=== PATIENT | female | born 1955 | race Caucasian/White ===

== ENCOUNTER 2018-11-25 09:01 | Emergency (ER) | payer BC ==
[2018-11-25 09:13] VITALS: BP 141/81
--- NOTE | 2018-11-25 10:27 | UC ---
Back Pain HPI - HPI Summary HPI Summary: 63 y/o female presents to the urgent care accompany by mother c/o of new onset of severe RT hip pain since last night. Pt reports Hx of Renal cell Carcinoma in 09/2007 s/p radical nephroctomy in 2011. Pt states cancer has metastasis to T12 and recently to L1 s/p radiation. She has been managed by [facility] and here in [place] by Dr Yesenia Tolbert. Pt recently has an Brain MRI to r/o metastasis which was negative. Pt states she took tylenol PO last night 500mg q3hrs. she has taken 4 doses, last dose taken was at 0100AM. She has nausea now, but has not vomited. Pt has been eating well and drinking fluids. However this morning she did a BM with hard stools. Pain now is 5/10 sharp in the Rt hip radiating to the Rt lower leg w/ mild nu - History of Current Complaint Chief Complaint: UCBackPain Stated Complaint: BACK PAIN Time Seen by Provider: 11/25/18 10:08 Hx Obtained From: Patient Pain Intensity: 9 - Allergies/Home Medications Allergies/Adverse Reactions: Allergies Allergy/AdvReac Type Severity Reaction Status Date / Time cefuroxime [From Ceftin] Allergy Hives Verified 11/25/18 09:13 hydrocodone Allergy Headache Verified 11/25/18 09:13 PMH/Surg Hx/FS Hx/Imm Hx Previously Healthy: Yes - Surgical History Surgical History: Yes Surgery Procedure, Year, and Place: PARTIAL NEPHRECTOMY RIGHT 2007. RADICAL RIGHT KIDNEY 2011. GALLBLADDER 2003. CYST REMOVED RIGHT OVARY BENIGN 1989. T& A - Social History Alcohol Use: None Substance Use Type: None Smoking Status (MU): Never Smoked Tobacco Physical Exam - Summary Physical Exam Summary: Vital Signs Reviewed: Yes Appearance: Well-Appearing, Well-Nourished, female sitting in the examining table w/o any apparent distress. Eyes: Positive: Conjunctiva Clear - PERRLA, EOMI. ENT: Positive: Normal ENT inspection, Hearing grossly normal, Pharynx normal, TMs normal, Uvula midline Neck: Positive: Supple, Nontender, No Lymphadenopathy Respiratory: Positive: Chest non-tender, Lungs clear, Normal breath sounds, No respiratory distress Cardiovascular: Positive: RRR, No Murmur, Pulses Normal, Brisk Capillary Refill Abdomen Description: Positive: Nontender, No Organomegaly, Soft. Negative: CVA Tenderness (R), CVA Tenderness (L) Bowel Sounds: Positive: Present Musculoskeletal: Positive: Strength Intact, Other: - BACK: Patient walked into the urgent care room with symmetric ambulation, No signs of limping, antalgic, able to bear weight. No signs of trauma, No masses palpated. Point tenderness at the level of L5-S1, No CVAT, no flank ecchymosis . No sacroiliac notch tenderness, No saddle anesthesia.ROM: limited due to pain, Straight Leg Raise: negative. Patellar reflexes: brisk, symmetric Muscle strength lower extremities. Dorsiflexion/ plantar flexion of ankles. Heel/ toe walk. Lower extremities: Femoral, popliteal, posterior tibial, and dorsalis pedis pulses WNL. Pt refuse rectal exam Musculoskeletal: Positive: Strength Intact, Other: - RT Hip: Pt is able to ambulate without difficulty or assistance, limp, or antalgic gait. No surface trauma, ecchymosis. No erythema, warmth. No deformity, crepitus, or obvious asymmetry of the RT hip. No Tenderness to palpation over the symphysis pubis, ischial bone, trochanter, SI notch, buttocks, quadriceps, femoral triangle, inguinal ligament. Point tenderness on Rt lateral side of the hip below the iliac crest. No inguinal lymphadenopathy. FROM limited due to pain. Distal motor and neurovascular status are intact. Neurological: Positive: Alert, Muscle Tone Normal Psychological Exam: Normal Skin Exam: Normal Triage Information Reviewed: Yes Vital Signs: Initial Vital Signs Temp 98 F 11/25/18 09:10 Pulse 90 11/25/18 09:10 Resp 17 11/25/18 09:10 BP 141/81 11/25/18 09:10 Pulse Ox 100 11/25/18 09:10 Back Pain Course/Dx - Differential Dx/Diagnosis Differential Diagnosis/HQI/PQRI: Compressive Cord Syndrome, Herniated Disc, Neoplasm, Strain, Sprain, Other - hip pain and metastasis Provider Diagnosis: Acute right hip pain Discharge - Sign-Out/Discharge Documenting (check all that apply): Patient Departure - D/c home All imaging exams completed and their final reports reviewed: Yes - Discharge Plan Condition: Stable Prescriptions: methylPREDNISolone [Medrol Dosepak 4 MG*] 4 mg PO .SEE FATUMA INSTRUCTION #1 fatuma traMADol TAB* [Ultram*] 50 mg PO Q6HR PRN #12 tab MDD 400mg/day PRN Reason: Pain Patient Education Materials: Hip Pain (ED), Bone Metastasis (ED) Referrals: Anna Skelton MD [Primary Care Provider] - - Billing Disposition and Condition Condition: STABLE
[2018-11-25] MEDS ORDERED: Ondansetron ODT TAB* 4 MG PO ONE ×2 (10:28→11:52)
[2018-11-25] MEDS ORDERED: traMADol TAB* 50 MG PO ONE (11:51)
== END 2018-11-25 12:29 | disposition home or self-care (01) ==
LOC: UCEAST 09:01
DX: M25.551 Pain in right hip (principal); Z88.5 Allergy status to narcotic agent; Z88.1 Allergy status to other antibiotic agents
CPT/HCPCS: 99212; A9270-GY; G0463

== ENCOUNTER 2019-11-14 01:07 | Emergency (ER) | payer BC, OTHER ==
--- OUTSIDE RECORDS SUMMARY | 2019-11-14 01:54 | XMS REPORT | Summary of Care ---
:1955 Author Organization [facility] Address [address] [facility] [place] [address] Care Team Providers Name Role Phone Anna Skelton MD Primary Care Provider Reason for Referral Refer to Department Only (Routine) Status Reason Specialty Diagnoses / Referred By Referred To Procedures Contact Contact Pending Review Physical Therapy Diagnoses Pain in joint of left shoulder Felicity Walden NP [address] [place] [address] Scheduling Instructions [employer] Reason for Visit Reason Comments Check Up had back surgery in december of 2018 and is now experiecing L shoulder pain, feels like its freezing, issues with range of motion Encounter Details Date Type Department Care Team Description 11/03/2019 Office Visit [place] [facility] Felicity Walden, Pain in joint of left Practice [facility] shoulder (Primary Dx) [address] [place] [address] [place] [address] [phone] Allergies Active Allergy Reactions Severity Noted Date Comments Cefuroxime Hives 08/14/2011 Hydrocodone RUBY ON RAILS WEB DEVELOPER Reaction 10/20/2007 CAUSES MIGRAINES documented as of this encounter (statuses as of 11/03/2019) Medications Medication Sig Dispensed Refills Start Date End Date Status MULTI-VITAMIN PO Take by mouth 0 Active DAILY. Loperamide-Simethicone Take by mouth. 0 Active (IMODIUM MULTI-SYMPTOM RELIEF PO) Probiotic Product Take by mouth. 0 Active (PROBIOTIC DAILY PO) Axitinib (INLYTA) 5 MG Take 5 mg by 0 Active Oral Tab mouth TWICE DAILY. levothyroxine Take 50 mcg by 0 Active (SYNTHROID) 50 MCG Oral mouth BEFORE Tab BREAKFAST. OXYcodone discharge Take 5 mg by 0 Active (OXY-IR,OXY-FAST) 5 MG mouth TWO TIMES Oral Tab DAILY NEEDED (pain, takes rarely). MEDICAL MARIJUANA Take 0.3 mg by 0 Active mouth TWO TIMES DAILY NEEDED. ondansetron (ZOFRAN) 4 Take 4 mg by 0 Active MG Oral TABLET mouth EVERY SIX DISPERSIBLE HOURS NEEDED (nausea). documented as of this encounter (statuses as of 11/03/2019) Active Problems Problem Noted Date Metastatic renal cell carcinoma, right 03/12/2018 Abnormal ECG 06/14/2013 Overview: 04/08/13 ECG: "Sinus bradycardia. Low voltage QRS, consider pulmonary disease, pericardial effusion, or normal variant. Poor R wave progression. Left anterior fascicular block. Abnormal ECG." No symptoms, will request that [facility] f/u. Visual changes 06/14/2013 Overview: Seen and assessed at [facility], MRI brain unremarkable. Attributed to retinal tear , not a pazopanib toxicity. Uterine anomaly 04/08/2013 Overview: [place] to be c/w fibroids here but 02/2013 scan at [facility] felt could be "c/w metastases" Seems unlikely but will have her review with the [facility] team Pain 02/15/2013 Overview: Occasional right pelvic pain responds to APAP Fatigue 02/15/2013 Overview: Expect TSH to be checked at [facility] Weight loss 07/25/2012 Overview: Weight has stabilized Other specified disorders of liver 10/31/2008 Metastatic renal cell carcinoma 10/12/2007 Overview: CTs at [facility] 09/02/13 Stable nodules Oncologic Diagnosis: Right renal ca "CLEAR CELL TYPE, VICKIE NUCLEAR GRADE 2 TO 3." Date of Original Diagnosis: 10/2007 Date recurrence: 2011 Stage at diagnosis: c/pT1a cN0 pNx cM0/cMx Current stage: cTx cNx pM1 with multiple abdominal nodules Treatment and clinical chronology: 2007 laparoscopic partial nephrectomy but required multiple excisions 3 retroperitoneal nodules noted on CT 05/14/12 retrospectively present on previous CTs (see 08/06/12 discussion). No definite distant disease apparent. 06/17/12 completion resection of kidney and perinephric and abdominal wall lesions c/w metastatic renal cell ca - rendered GARIMA. After discussion of "adjuvant" options chose observation CTs and bone scans 11/2012 recurrent abdominal nodules up to 1.2 cm new retroperitoneal nodules and ?right adrenal nodule and right paraspinal recurrence. No bone or lung lesions 12/31/[address] Cao [facility] and started on pazopanib. Ongoing loss of hair pigmentation otherwise good tolerance. 03/09/12 CT at [facility] - reduction in size of nodules Treatment plan: Per [facility] Pazopanib 800 mg po daily, start 01/01/13 Intent: palliative Monitoring plan: Per [facility] Other providers: Dr. Kari Reilly, [facility] FAX [phone] (send results from labs) Current ECOG Performance Status: 0 Current Status: NC on 02/2013 CT at [facility] Code Status: Full Living Will/Health Care Proxy: documented as of this encounter (statuses as of 11/03/2019) Resolved Problems Problem Noted Date Resolved Date Elevated transaminase level 02/15/2013 04/08/2013 Overview: Advised to avoid alcohol Shoulder pain, right 08/09/2012 12/22/2012 Overview: Post op and seems musculoskeletal. She wonders if relates to positioning on operating room table. May need additional imaging and evaluation if persists. Situational mixed anxiety and depressive disorder 07/25/2012 03/14/2016 Overview: Understandable situational anxiety and mild depression. Much improved Dysfunction of eustachian tube 08/14/2011 03/14/2016 Pleurisy without mention of effusion or current tuberculosis 10/31/200812/15 Irritable bowel syndrome 06/21/2008 07/20/2014 Calculus of gallbladder without mention of cholecystitis or 09/30/20052015 obstruction Other specified pre-operative examination 09/30/2005 12/15/2009 documented as of this encounter (statuses as of 11/03/2019) Immunizations Name Administration Dates Next Due Influenza (IM) Preservative Free 07/12/2019, 07/13/2018, 07/25/2017, 07/10/2016, 07/07/2015, 07/29/2014, 07/08/2013, 07/15/2012, 08/28/2011 Influenza Vaccine Whole 08/11/2009 PNEUMOCOCCAL POLYSACCHARIDE VACCINE 09/29/2017 Pneumococcal Conjugate(13 Valent) 08/04/2019 TDAP Vaccine 03/12/2018 documented as of this encounter Social History Tobacco Use Types Packs/Day Years Used Date Former Smoker Quit: 07/23/1975 Smokeless Tobacco: Never Used Comments: smoked since she was a young adult. Alcohol Use Drinks/Week oz/Week Comments Yes 1 Glasses of wine 1.0 former wine, rare now Sex Assigned at Date Recorded Not on file Job Start Date Occupation Industry Not on file Not on file Not on file Travel History Travel Start Travel End No recent travel history available. documented as of this encounter Last Filed Vital Signs Vital Sign Reading Time Taken Comments Blood Pressure 128/62 11/03/2019 3:58 PM EST Pulse 83 11/03/2019 3:58 PM EST Temperature - - Respiratory Rate - - Oxygen Saturation 99% 11/03/2019 3:58 PM EST Inhaled Oxygen Concentration - - Weight 58.5 kg (129 lb) 11/03/2019 3:58 PM EST Height 160 cm (5' 3") 11/03/2019 3:58 PM EST Body Mass Index 22.85 11/03/2019 3:58 PM EST documented in this encounter Patient Instructions Patient InstructionsNoFelicity torre NP - 11/03/2019 3:40 PM ESTXray today - I'll let you know the results as soon as I get them. Schedule physical therapy - the new referral is in. documented in this encounter Progress Notes Felicity Walden NP - 11/03/2019 3:40 PM EST PATIENT: Keira Yeager : 1955 DATE OF SERVICE: 11/03/2019 CHIEF COMPLAINT: Chief Complaint Patient presents with Check Up had back surgery in december of 2018 and is now experiecing L shoulder pain, feels like its freezing,issues with range of motion Subjective HISTORY OF PRESENT ILLNESS: Keira Yeager is a 64-y.o. female. HPI Left shoulder, not able to lift her arm up. She was doing physical therapy for her back and mentioned to her therapist, who added shoulder exercises. She has history of Kidney cancer since 2007 - still ongoing. Right nephrectomy (partient in 2007, then rest in 2011). She had surgeries at [facility], and then third tumor was treated at [facility]. One year ago in October scan showed a tumor in L1. Had radiation on that in November 2017, then a hairline fracture. End of January kyphoplasty on the L1 and titanium alfonzo from T12 -L2 on left. t12- l3 on right. Shoulder stiffness started Fall 2018. Doing aquatherapy. She got a puppy and he pulled on the leash, hyperextending her arm - but thinks the tightness started before this incident. Getting some pain in the bicep/tricep areas at time, tenderness. Would like an xray to make sure no cancer in the shoulder. Plans to return to physical therapy, ended in September (has been doing the HEP since). Posterior rotation causes muscle pain and tightness. Raising arm above head= she can do it but it is painful and stiff/tight feeling. Past Medical History: Diagnosis Date Irritable bowel syndrome 06/21/2008 Nulliparity Other specified disorders of liver 10/31/2008 hepatic cyst and small lesions too small to diagnose on CT 12/2015 Postmenopausal Renal cell carcinoma (HCC) diagnoised in 2006, s/p radical nephrectomy. Pazopanib PO daily, current dose is 800 mg daily Situational mixed anxiety and depressive disorder Situational mixed anxiety and depressive disorder Smoker 06/21/2008 Family History Problem Relation Age of Onset Uterine Cancer Mother Glaucoma Mother Cancer Mother uterine cancer Pulmonary Mother PE of lung Cancer Father postate cancer Heart Father CAD, stent, no [place] No Known Problems Sister Colon Cancer Unknown family history Diabetes Unknown family history Heart Unknown family history Breast Cancer Paternal Aunt Diabetes Maternal Grandmother Current Outpatient Medications Medication Sig Axitinib (INLYTA) 5 MG Oral Tab Take 5 mg by mouth TWICE DAILY. levothyroxine (SYNTHROID) 50 MCG Oral Tab Take 50 mcg by mouth BEFORE BREAKFAST. Loperamide-Simethicone (IMODIUM MULTI-SYMPTOM RELIEF PO) Take by mouth. MEDICAL MARIJUANA Take 0.3 mg by mouth TWO TIMES DAILY NEEDED. MULTI-VITAMIN PO Take by mouth DAILY. ondansetron (ZOFRAN) 4 MG Oral TABLET DISPERSIBLE Take 4 mg by mouth EVERY SIX HOURS NEEDED (nausea). OXYcodone discharge (OXY-IR,OXY-FAST) 5 MG Oral Tab Take 5 mg by mouth TWO TIMES DAILY NEEDED (pain, takes rarely). Probiotic Product (PROBIOTIC DAILY PO) Take by mouth. No current facility-administered medications for this visit. Allergies Allergen Reactions Ceftin [Cefuroxime] Hives Hydrocodone RUBY ON RAILS WEB DEVELOPER Reaction CAUSES MIGRAINES Social History Socioeconomic History Marital status: Spouse name: Not on file Number of children: Not on file Years of education: Not on file Highest education level: Not on file Occupational History Not on file Social Needs Financial resource strain: Not on file Food insecurity Worry: Not on file Inability: Not on file Transportation needs Medical: Not on file Non-medical: Not on file Tobacco Use Smoking status: Former Smoker Last attempt to quit: 07/23/1975 Years since quittin.3 Smokeless tobacco: Never Used Tobacco comment: smoked since she was a young adult. Substance and Sexual Activity Alcohol use: Yes Alcohol/week: 1.0 standard drinks Types: 1 Glasses of wine per week Comment: former wine, rare now Drug use: No Sexual activity: Not Currently Partners: Male Lifestyle Physical activity Days per week: Not on file Minutes per session: Not on file Stress: Not on file Relationships Social connections Talks on phone: Not on file Gets together: Not on file Attends judaism service: Not on file Active member of club or organization: Not on file Attends meetings of clubs or organizations: Not on file Relationship status: Not on file Intimate partner violence Fear of current or ex partner: Not on file Emotionally abused: Not on file Physically abused: Not on file Forced sexual activity: Not on file Other Topics Concern Back Care Not Asked Bike Helmet Not Asked Blood Transfusions No Caffeine Concern Yes Comment: green tea, 3-4/day Exercise Yes Comment: yoga, walks Hobby Hazards Not Asked International Travel Not Asked Service Not Asked Occupational Exposure Not Asked Seat Belt Not Asked Self-Exams Not Asked Sleep Concern Not Asked Special Diet No Comment: lactose intolerant Stress Concern Not Asked Weight Concern Not Asked Social History Narrative 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 Cardiovascular: Negative for chest pain and palpitations. Musculoskeletal: Positive for back pain (chronic), joint pain (left shoulder) and myalgias (left bicep/tricep). Negative for falls and neck pain. Neurological: Negative for dizziness, tingling, sensory change and headaches. Objective PHYSICAL EXAM: VITALS: BP 128/62 (BP Location: Left arm, Patient Position: Sitting) | Pulse 83 | Ht 5' 3" (1.6 m) | Wt 129 lb (58.5 kg) | SpO2 99% | No | BMI 22.85 kg/m Body mass index is 22.85 kg/m. Physical Exam Vitals signs and nursing note reviewed. Constitutional: General: She is not in acute distress. Appearance: Normal appearance. She is well-developed. Cardiovascular: Rate and Rhythm: Normal rate and regular rhythm. Heart sounds: Normal heart sounds. No murmur. No friction rub. No gallop. Pulmonary: Effort: Pulmonary effort is normal. No respiratory distress. Breath sounds: Normal breath sounds. Musculoskeletal: Right shoulder: Normal. Left shoulder: She exhibits decreased range of motion, tenderness and pain. She exhibits no bony tenderness, no swelling, no effusion, no crepitus, no deformity, no spasm, normal pulse and normal strength. Left elbow: Normal. Cervical back: Normal. Left upper arm: She exhibits tenderness. She exhibits no bony tenderness, no swelling, no edema, no deformity and no laceration. Arms: Lymphadenopathy: Head: Right side of head: No submental, submandibular or tonsillar adenopathy. Left side of head: No submental, submandibular or tonsillar adenopathy. Cervical: No cervical adenopathy. Upper Body: Right upper body: No supraclavicular adenopathy. Left upper body: No supraclavicular adenopathy. Neurological: Mental Status: She is alert. Psychiatric: Mood and Affect: Mood and affect normal. Speech: Speech normal. Behavior: Behavior normal. Behavior is cooperative. ASSESSMENT / IMPRESSION: ICD-9-CM ICD-10-CM 1. Pain in joint of left shoulder 719.41 M25.512 XR SHOULDER MIN 2 VIEWS LEFT ( STANDARD) REFER TO PHYSICAL THERAPY / REHAB CANCELED: REFER TO PHYSICAL THERAPY / REHAB Plan 1. Pain in joint of left shoulder -Given history of metastatic cancer, will do xray. - follow up with oncologist is next week. -New referral to physical therapy as requested. - XR SHOULDER MIN 2 VIEWS LEFT (STANDARD); Future - REFER TO PHYSICAL THERAPY / REHAB; Standing Author: Felicity Walden NP 11/03/2019 19:20 documented in this encounter Plan of Treatment Date Type Specialty Care Team Description 11/04/2019 Ancillary Procedure Radiology Name Type Priority Associated Diagnoses Order Schedule XR SHOULDER MIN 2 Imaging Routine Pain in joint of left Expected: 2019, VIEWS LEFT (STANDARD) shoulder Expires: 11/02/2020 Name Type Priority Associated Diagnoses Order Schedule REFER TO PHYSICAL Referral Routine Pain in joint of left 99 Occurrences starting THERAPY / REHAB shoulder 11/03/2019 until 11/03/2020 Health Maintenance Due Date Last Done Comments ZOSTER IMMUNIZATION SERIES 2007 (1 of 2) PAP SMEAR 07/09/2019 07/09/2017, 07/05/2016, 07/05/2016, Additional history exists DEPRESSION SCREENING 06/11/2020 06/11/2019 MAMMOGRAM (SCREENING) 08/26/2020 08/26/2019, 07/10/2018, 07/09/2017, Additional history exists Colonoscopy 05/15/2022 05/15/2017, 03/17/2007 PNEUMOCOCCAL 0-64 YRS (3 of 09/29/2022 08/04/2019, 09/29/2017 3 - PPSV23) LIPID DISORDER SCREENING 08/26/2024 08/26/2019, 03/12/2018, 06/30/2013, Additional history exists DTaP/Tdap/Td Vaccines (2 - 03/12/2028 03/12/2018 Tdap) HEPATITIS C SCREENING Completed 06/21/2014 INFLUENZA VACCINE Completed 07/12/2019, 07/13/2018, 07/25/2017, Additional history exists HEPATITIS A IMMUNIZATION Aged Out No longer eligible SERIES based on patient's age to complete this topic HPV IMMUNIZATION SERIES Aged Out No longer eligible based on patient's age to complete this topic MENINGOCOCCAL VACCINE IMM Aged Out No longer eligible based on patient's age to complete this topic documented as of this encounter Goals Goal Patient Goal Associated Recent Patient-Stated? Author Type Problems Progress Depression Depression No Iram screen (PHQ-9) Felicity, total score < 5 [facility] Note: This is an individualized treatment (depression) goal for Keira Yeager: Displayed above is your goal for a depression screening (PHQ-9) score that would indicate good control of your depression. Keep a regular sleep schedule Lifestyle No Felicity Walden NP Note: This is an individualized lifestyle goal for Keira Wise Ron: Please maintain a regular sleep schedule. This may help with some symptoms of depression. Take all prescribed medications as Self-management No Felicity Walden NP directed Note: This is an individualized self-management goal for Keira Lebronotson: Please take all prescribed medications as directed. 1. Do not skip doses. If you cannot afford your medications, talk with your doctor. 2. Use a pill reminder system such as a pill box if needed. Your pharmacist can help you with this. 3. Contact your Pharmacy 5 days before your medication runs out. If you cannot take your medications for any reasons, talk with your doctor. 4. Please bring all of your medication bottles and inhalers (or a list of all your medications/inhalers) with you to every visit. Potential barriers to meeting all of your care plan goals will continue to be addressed on an ongoing basis. documented as of this encounter Results Not on filedocumented in this encounter Visit Diagnoses Diagnosis Pain in joint of left shoulder Pain in joint, shoulder region documented in this encounter Insurance Payer Benefit Plan / Subscriber ID Effective Dates Phone Address Type Group [facility] PLAN xxxxxxxxx Effective for all [place] dates documented as of this encounter
[2019-11-14] MEDS ORDERED: NS 0.9% 1000 ML** 1,000 ML IV ONE ×2 (02:16→02:50)
[2019-11-14 02:38] LABS: ABS Basophils 0.1 10^3/ul (0-0.2); ABS Eosinophils 0.1 10^3/ul (0-0.6); ABS Lymphocytes 1.1 10^3/ul (1.0-4.8); ABS Monocytes 0.6 10^3/ul (0-0.8); ABS Neutrophils 6.8 10^3/ul (1.5-7.7); Eosinophil % 0.7 %; Hematocrit 43 % (35-47); Hemoglobin 14.5 g/dL (12.0-16.0); Lymphocyte % 12.6 %; Mean Corpuscular HGB Conc 34 g/dL (31-36); Mean Corpuscular Hemoglobin 31 pg (27-31); Mean Corpuscular Volume 93 fL (80-97); Mean Platelet Volume 7.8 fL (7.4-10.4); Platelet Count 299 10^3/uL (150-450); Red Blood Count 4.63 10^6 /uL (3.70-4.87); Red Cell Distribution Width 14 % (10-15); White Blood Count 8.5 10^3/uL (3.5-10.8)
[2019-11-14 02:43] LABS: INR 0.93 (0.82-1.09)
[2019-11-14 02:55] LABS: ALT 22 U/L (7-52); AST 17 U/L (13-39); Albumin 3.7 g/dL (3.2-5.2); Albumin/Globulin Ratio 1.9 (1-3); Alkaline Phosphatase 56 U/L (34-104); Anion Gap 6 mmol/L (2-11); BUN/Creatinine Ratio 13.7 (8-20); Blood Urea Nitrogen 14 mg/dL (6-24); CO2 Carbon Dioxide 27 mmol/L (22-32); Calcium 8.3 mg/dL (8.6-10.3); Chloride 103 mmol/L (101-111); EGFR African American 66.4 (>60); EGFR Non-African American 54.9 (>60); Glucose 119 mg/dL (70-100); Magnesium 1.8 mg/dL (1.9-2.7); Potassium 4.1 mmol/L (3.5-5.0); Sodium 136 mmol/L (135-145); Total Protein 5.7 g/dL (6.4-8.9)
--- NOTE | 2019-11-14 03:05 | ED ---
Syncope/Near Syncope - HPI Summary HPI Summary: This patient is a 73 year old F presenting to [facility] by EMS with a chief complaint of syncope since prior to arrival. Pt reports she got up to let the puppy out, as she was walking, she didnt feel right. Pt thinks she grabbed the door knob to steady herself and then the next thing she remembers is being on the floor. Pt could not get up. Pt has had diarrhea which is a side effect of the targeted therapy she is on, Inlyta. Pt took imodium, but she threw it up. Pt has never passed out before. She reports lip pain, slight HERNANDEZ and stiff neck. Pt denies changes in vision, nausea, CP, SOB, tingling and numbness in extremities. - History Of Current Complaint Chief Complaint: EDSyncope Time Seen by Provider: 11/14/19 02:14 Hx Obtained From: Patient Onset/Duration: Sudden Onset Timing: Intermittent Episode Lasting Context: Unwitnessed Activity At Onset: Exertion Aggravating Factor(s): Nothing Alleviating Factor(s): Nothing Associated Signs And Symptoms: Diarrhea, Vomiting - Allergies/Home Medications Allergies/Adverse Reactions: Allergies Allergy/AdvReac Type Severity Reaction Status Date / Time cefuroxime [From Ceftin] Allergy Hives Verified 11/14/19 01:39 hydrocodone Allergy Headache Verified 11/14/19 01:39 Home Medications: Home Medications Acetaminophen TAB* [Tylenol TAB*] 325 mg PO Q4H PRN 11/14/19 [History Confirmed 11/14/19] Axitinib [Inlyta] 5 mg PO BID 11/14/19 [History Confirmed 11/14/19] Levothyroxine Sodium 50 mcg PO QAM 11/14/19 [History Confirmed 11/14/19] Loperamide CAP* [Imodium CAP*] 2 mg PO Q2HR PRN 11/14/19 [History Confirmed 12/02] PMH/Surg Hx/FS Hx/Imm Hx Endocrine/Hematology History: Denies: Hx Diabetes Cardiovascular History: Denies: Hx Hypertension, Hx Pacemaker/ICD History: Reports: Hx Renal Disease - KIDNEY CARCINOMA Sensory History: Denies: Hx Hearing Aid Psychiatric History: Denies: Hx Panic Disorder - Cancer History Cancer Type, Location and Year: KIDNEY - Surgical History Surgery Procedure, Year, and Place: PARTIAL NEPHRECTOMY RIGHT 2007. RADICAL RIGHT KIDNEY 2011. GALLBLADDER 2003. CYST REMOVED RIGHT OVARY BENIGN 1989. T& A Infectious Disease History: No Infectious Disease History: Denies: Traveled Outside the [place] in Last 30 Days - Family History Known Family History: Negative: Hypertension, Diabetes - Social History Alcohol Use: None Hx Substance Use: No Substance Use Type: Reports: None Hx Tobacco Use: No Smoking Status (MU): Never Smoked Tobacco - Additional Comments History Additional Comments: PMHx : KIDNEY CARCINOMA Home Medications Medication Instructions Recorded Confirmed Type Ondansetron ODT TAB* [Zofran 4 MG 4 mg PO Q6H PRN #12 tab.odt 11/25/18 11/14/19 Rx Odt TAB*] Acetaminophen TAB* [Tylenol TAB*] 325 mg PO Q4H PRN 11/14/19 11/14/19 History Axitinib [Inlyta] 5 mg PO BID 11/14/19 11/14/19 History Levothyroxine Sodium 50 mcg PO QAM 11/14/19 11/14/19 History Loperamide CAP* [Imodium CAP*] 2 mg PO Q2HR PRN 11/14/19 11/14/19 History Review of Systems Negative: Chest Pain Negative: Shortness Of Breath Positive: Diarrhea. Negative: Nausea Positive: Other - stiff neck Positive: Headache, Syncope. Negative: Numbness All Other Systems Reviewed And Are Negative: Yes Physical Exam - Summary Physical Exam Summary: General: Well-developed, Well-nourished. Elderly female has some dried blood on her lip. No acute distress. HEENT: Normocephalic, Atraumatic. Eyes: Conjuctiva normal, PERRL. Oropharynx: Clear, Dry mucous membraned, (-) exudates. Neck: Soft, FROM, (-) lymphadenopathy, (-) thyromegaly, (-) JVD. Left bilateral neck pain Cardiovascular: Normal sinus rhythm, (-) murmur. Lungs: Clear to auscultation bilaterally (-) wheezes, (-) rales, (-) rhonchi. Abdomen: Soft, non-tender, non-distended, (-) organomegaly, normal bowel sounds. Back: (-) CVA tenderness Extremities: No edema. Skin: Warm, dry, (-) rash. Laceration on lower lip Neuro: Alert and oriented x3, moves all extremities equally. No ataxia. No gait disturbance. No sensory deficit. No amnesia. lower lip laceration that goes partway inside the lip and outside the lip. It does not appear to go through the dominick border. Psychiatric: Mood normal, affect normal. Triage Information Reviewed: Yes Vital Signs On Initial Exam: Initial Vitals Pulse BP Pulse Ox 80 120/78 100 11/14/19 01:18 11/14/19 01:18 11/14/19 01:18 Vital Signs Reviewed: Yes Procedures - Sedation Patient Received Moderate/Deep Sedation with Procedure: No - Laceration/Wound Repair 1 Location: mouth Description: Linear Anesthesia: Local, Lido Length, Depth and Shape: 7mm lac Betadine Prep?: No Irrigated w/ Saline (ccs): 100 - 100 mL Laceration/Wound Explored: clean Closure: Single Layer Suture Type: Other - 3 absorbable sutures Number of Sutures: 3 Layer Closure?: No Sterile Dressing Applied?: No Diagnostics - Vital Signs Vital Signs Temp Pulse Resp BP Pulse Ox 11/14/19 02:00 71 14 96 11/14/19 01:48 78 14 96/69 97 11/14/19 01:21 97.3 F 79 18 120/78 98 11/14/19 01:20 85 98 11/14/19 01:18 80 120/78 100 - Laboratory Lab Results: Lab Results 11/14/19 11/14/19 11/14/19 Range/Units 02:31 02:31 02:31 WBC 8.5 (3.5-10.8) 10^3/uL RBC 4.63 (3.70-4.87) 10^6 /uL Hgb 14.5 (12.0-16.0) g/dL Hct 43 (35-47) % MCV 93 (80-97) fL MCH 31 (27-31) pg MCHC 34 (31-36) g/dL RDW 14 (10-15) % Plt Count 299 (150-450) 10^3/uL MPV 7.8 (7.4-10.4) fL Neut % (Auto) 79.5 % Lymph % (Auto) 12.6 % Barren % (Auto) 6.5 % Eos % (Auto) 0.7 % Baso % (Auto) 0.7 % Absolute Neuts (auto) 6.8 (1.5-7.7) 10^3/ul Absolute Lymphs (auto) 1.1 (1.0-4.8) 10^3/ul Absolute Monos (auto) 0.6 (0-0.8) 10^3/ul Absolute Eos (auto) 0.1 (0-0.6) 10^3/ul Absolute Basos (auto) 0.1 (0-0.2) 10^3/ul Absolute Nucleated RBC 0.0 10^3/ul Nucleated RBC % 0.0 INR (Anticoag Therapy) (0.82-1.09) Sodium 136 (135-145) mmol/L Potassium 4.1 (3.5-5.0) mmol/L Chloride 103 (101-111) mmol/L Carbon Dioxide 27 (22-32) mmol/L Anion Gap 6 (2-11) mmol/L BUN 14 (6-24) mg/dL Creatinine 1.02 H (0.51-0.95) mg/dL Est GFR ( Amer) 66.4 (>60) Est GFR (Non-Af Amer) 54.9 (>60) BUN/Creatinine Ratio 13.7 (8-20) Glucose 119 H (70-100) mg/dL Lactic Acid 1.2 (0.5-2.0) mmol/L Calcium 8.3 L (8.6-10.3) mg/dL Magnesium 1.8 L (1.9-2.7) mg/dL Total Bilirubin 0.40 (0.2-1.0) mg/dL AST 17 (13-39) U/L ALT 22 (7-52) U/L Alkaline Phosphatase 56 (34-104) U/L Troponin I 0.00 (<0.03) ng/mL Total Protein 5.7 L (6.4-8.9) g/dL Albumin 3.7 (3.2-5.2) g/dL Globulin 2.0 (2-4) g/dL Albumin/Globulin Ratio 1.9 (1-3) TSH Pending Serum Alcohol Pending 11/14/19 Range/Units 02:31 WBC (3.5-10.8) 10^3/uL RBC (3.70-4.87) 10^6 /uL Hgb (12.0-16.0) g/dL Hct (35-47) % MCV (80-97) fL MCH (27-31) pg MCHC (31-36) g/dL RDW (10-15) % Plt Count (150-450) 10^3/uL MPV (7.4-10.4) fL Neut % (Auto) % Lymph % (Auto) % Barren % (Auto) % Eos % (Auto) % Baso % (Auto) % Absolute Neuts (auto) (1.5-7.7) 10^3/ul Absolute Lymphs (auto) (1.0-4.8) 10^3/ul Absolute Monos (auto) (0-0.8) 10^3/ul Absolute Eos (auto) (0-0.6) 10^3/ul Absolute Basos (auto) (0-0.2) 10^3/ul Absolute Nucleated RBC 10^3/ul Nucleated RBC % INR (Anticoag Therapy) 0.93 (0.82-1.09) Sodium (135-145) mmol/L Potassium (3.5-5.0) mmol/L Chloride (101-111) mmol/L Carbon Dioxide (22-32) mmol/L Anion Gap (2-11) mmol/L BUN (6-24) mg/dL Creatinine (0.51-0.95) mg/dL Est GFR ( Amer) (>60) Est GFR (Non-Af Amer) (>60) BUN/Creatinine Ratio (8-20) Glucose (70-100) mg/dL Lactic Acid (0.5-2.0) mmol/L Calcium (8.6-10.3) mg/dL Magnesium (1.9-2.7) mg/dL Total Bilirubin (0.2-1.0) mg/dL AST (13-39) U/L ALT (7-52) U/L Alkaline Phosphatase (34-104) U/L Troponin I (<0.03) ng/mL Total Protein (6.4-8.9) g/dL Albumin (3.2-5.2) g/dL Globulin (2-4) g/dL Albumin/Globulin Ratio (1-3) TSH Serum Alcohol Result Diagrams: 11/14/19 02:31 11/14/19 02:31 Lab Statement: Any lab studies that have been ordered have been reviewed, and results considered in the medical decision making process. - CT Cervical Spine CT CT Interpretation Completed By: Radiologist Summary of CT Findings: Cervical Spine CT reveals, per radiologist IMPRESSION: 1. No acute fracture involving the cervical vertebral bodies or posterior. elements. 2. No pathological subluxation. 3. Multilevel degenerative cervical disc disease and facet disease. No. significant central canal stenosis. Variable degrees of neural foraminal. narrowing secondary to degenerative changes of the uncovertebral joints and. facet joints. ED physician has reviewed this radiology report. Brain CT CT Interpretation Completed By: Radiologist Summary of CT Findings: Brain CT reveals, per radiologist IMPRESSION: No acute intracranial findings. ED physician has reviewed this radiology report. - EKG 0258 Cardiac Rate: NL EKG Rhythm: Sinus Rhythm Summary of EKG Findings: EKG at 0258 reveals normal sinus rhythm with rate of 74 BPM, no acute changes, no ischemic changes. This EKG was reviewed and interpreted by Dr. Valdez. Course/Dx Course Of Treatment: In ED pt received fluids. - Diagnoses Provider Diagnoses: Syncope, Abrasion of nose, Laceration of lip Discharge ED - Sign-Out/Discharge Documenting (check all that apply): Patient Departure - Discharge - Discharge Plan Condition: Stable Disposition: HOME Patient Education Materials: Syncope (ED) Referrals: Anna Skelton MD [Primary Care Provider] - 3 Days Additional Instructions: Please follow up with your primary care physician within three days. Please return to ED for any new or worsening symptoms. - Attestation Statements Document Initiated by Scribe: Yes Documenting Scribe: Clara Morris Provider For Whom Scribe is Documenting (Include Credential): Dr. Peace Valdez MD Scribe Attestation: Clara Molina, scribed for Dr. Peace Valdez MD on 11/14/19 at 0711.
[2019-11-14 03:11] LABS: Alcohol < 10 mg/dL (<10)
[2019-11-14 03:27] LABS: TSH (Thyroid Stimulating Horm) 8.99 mcIU/mL (0.34-5.60)
[2019-11-14 06:53] LABS: Urine Appearance Clear; Urine Bilirubin Negative (Negative); Urine Blood Negative (Negative); Urine Color Yellow; Urine Glucose Negative (Negative); Urine Ketones Negative (Negative); Urine Nitrite Negative (Negative); Urine Protein Negative (Negative); Urine Specific Gravity 1.006 (1.010-1.030); Urine Urobilinogen Negative (Negative)
[2019-11-14] MEDS ORDERED: Magnesium Oxide TAB* 400 MG PO ONE (07:06)
[2019-11-14 07:35] VITALS: BP 101/71
== END 2019-11-14 08:05 | disposition home or self-care (01) ==
LOC: ED 01:07
DX: S01.511A Laceration without foreign body of lip, initial encounter (principal); R55 Syncope and collapse; W18.30XA Fall on same level, unspecified, initial encounter; Y92.009 Unspecified place in unspecified non-institutional (private) residence as the place of occurrence of the external cause; C64.9 Malignant neoplasm of unspecified kidney, except renal pelvis; Z79.899 Other long term (current) drug therapy; Z90.5 Acquired absence of kidney; Z88.1 Allergy status to other antibiotic agents; Z88.5 Allergy status to narcotic agent
CPT/HCPCS: 12011; 36415; 70450; 72125; 80053; 80320; 81003; 83605; 83735; 83880; 84443; 84484; 85025; 85610; 93005; 96360; 96361; 99284; G0480

== ENCOUNTER 2023-07-14 09:45 | Inpatient (IN) ==
[2023-07-14] MEDS ORDERED: Lactated Ringers 1000 ml BAG 1,000 ML IV ONE ×2 (10:55→16:51)
[2023-07-14 11:48] LABS: Albumin 3.5 g/dL (3.2-5.2); Calcium 7.4 mg/dL (8.6-10.3); Potassium 3.6 mmol/L (3.5-5.0)
[2023-07-14 11:51] LABS: ABS Lymphocytes 0.5 10^3/uL (1.0-4.8); ABS Monocytes 0.2 10^3/uL (0.0-0.9); ABS Neutrophils 3.1 10^3/uL (1.5-7.6); Eosinophil % 0.2 %; Hematocrit 32.7 % (35-45); Hemoglobin 11.5 g/dL (11.5-14.3); Mean Corpuscular Hemoglobin 35.1 pg (27-33); Mean Corpuscular Hgb Conc 35.1 g/dL (31-36); Mean Corpuscular Volume 100.1 fL (80-97); Mean Platelet Volume 7.1 fL (7.5-11.2); Platelet Count 236 10^3/uL (150-450); Red Blood Count 3.27 10^6/uL (3.63-4.92); Red Cell Distribution Width 15.6 % (12-17); White Blood Count 3.8 10^3/uL (3.8-11.8)
[2023-07-14 11:54] LABS: Albumin/Globulin Ratio 1.6 (1-3); C Reactive Protein 120.61 mg/L (<8.01); Creatinine, Serum 0.8 mg/dL (0.51-0.95); Globulin 2.2 g/dL (2-4); Total Protein 5.7 g/dL (6.4-8.9); eGFR CKD-EPI 81.2 (>60)
[2023-07-14] MEDS ORDERED: Acetaminophen IV 1 GM/100ML 650 MG/65 ML BAG IV ONE (11:58)
[2023-07-14] MEDS: Dextrose 50% Syringe 50 ml 25 GM/50 ML SYRINGE IV PUSH PRN (13:34)
[2023-07-14] MEDS ORDERED: oxyCODONE 5 mg/5 ml ORAL.SOLN UDC PO ONE (15:04)
[2023-07-14] MEDS: Calcium Carb (TUMS) 500 mg CHEW TAB PO ONE ×2 (15:24→15:52)
[2023-07-14] MEDS ORDERED: fentaNYL 100 mcg/2 ml 50 MCG/ML VIAL ONE (16:47)
[2023-07-14] MEDS ORDERED: Midazolam 10 mg/10 ml VIAL 1 mg/ml 10 ml VIAL (10 mg) ONE (16:47)
[2023-07-14] MEDS ORDERED: Lidocaine 2% JELLY 6 ML Topical TOPICAL ONE (16:51)
[2023-07-14] MEDS ORDERED: fentaNYL 100 mcg/2 ml 50 MCG/ML VIAL IV SLOW PU ONE (16:51)
[2023-07-14] MEDS ORDERED: Flumazenil 0.5 mg/5 ml 0.1 MG/ML 5 ml VIAL IV PRN (16:51)
[2023-07-14] MEDS ORDERED: Midazolam 10 mg/10 ml VIAL 1 mg/ml 10 ml VIAL (10 mg) IV SLOW PU ONE (16:51)
[2023-07-14] MEDS ORDERED: Naloxone 0.4 mg VIAL 0.4 mg/ml 1 ml VIAL IV PUSH PRN (16:51)
[2023-07-14] MEDS ORDERED: Ondansetron 4 mg VIAL 2 MG/ML 2 ml VIAL IV ONE (16:51)
[2023-07-14] MEDS ORDERED: Lactated Ringers 1000 ml BAG IV.FLUID IV ONE (17:30)
[2023-07-14] MEDS ORDERED: Lactated Ringers 1000 ml BAG 1,000 ML IV SCH (20:00)
[2023-07-14] MEDS ORDERED: Morphine 2 MG/ML SYRINGE IV PRN ×3 (22:29→22:40)
[2023-07-14] MEDS ORDERED: Acetaminophen IV 1 GM/100ML 1,000 MG/100 ML BAG IV PRN (22:29)
[2023-07-14] MEDS ORDERED: Acetaminophen IV 1 GM/100ML 650 MG/65 ML BAG IV PRN ×2 (22:38→22:40)
[2023-07-14] MEDS: Enoxaparin 40 MG/0.4 ML SYR SUBCUT SCH (23:50)
[2023-07-15] MEDS: Morphine 2 MG/ML SYRINGE IV PRN ×3 (03:15→16:02)
[2023-07-15] MEDS: Ondansetron 4 mg VIAL 2 MG/ML 2 ml VIAL IV PRN ×3 (03:16→21:51)
[2023-07-15 07:02] LABS: Creatinine, Serum 0.58 mg/dL (0.51-0.95); Potassium 3.5 mmol/L (3.5-5.0); eGFR CKD-EPI 99.7 (>60)
[2023-07-15 07:04] LABS: ABS Lymphocytes 0.5 10^3/uL (1.0-4.8); ABS Monocytes 0.2 10^3/uL (0.0-0.9); ABS Neutrophils 2.2 10^3/uL (1.5-7.6); Eosinophil % 0.5 %; Hematocrit 30.6 % (35-45); Hemoglobin 10.9 g/dL (11.5-14.3); Lymphocyte % 16.3 %; Mean Corpuscular Hemoglobin 35.2 pg (27-33); Mean Corpuscular Hgb Conc 35.6 g/dL (31-36); Mean Corpuscular Volume 98.8 fL (80-97); Mean Platelet Volume 6.8 fL (7.5-11.2); Nucleated Red Blood Cells % 0.1 /100 WBC (0.0-0.4); Platelet Count 202 10^3/uL (150-450); Red Cell Distribution Width 15.6 % (12-17)
[2023-07-15] MEDS: D5LR 1000 ml BAG 1,000 ML IV SCH (10:44)
[2023-07-15] MEDS: Dextrose 50% Syringe 50 ml 25 GM/50 ML SYRINGE IV PUSH PRN ×2 (10:44→10:45)
[2023-07-15] MEDS ORDERED: D5LR 1000 ml BAG 1,000 ML IV SCH (11:00)
[2023-07-15] MEDS: Fluticasone NASAL SPRAY 50MCG 16 gm SPRAY BTL BOTH NARES SCH ×2 (11:51→14:27)
[2023-07-15] MEDS: Acetaminophen IV 1 GM/100ML 650 MG/65 ML BAG IV PRN (14:15)
[2023-07-15] MEDS: Oxymetazoline 0.05% NASAL SPR 15 ML BTL BOTH NARES SCH ×2 (21:40)
[2023-07-15] MEDS: Enoxaparin 40 MG/0.4 ML SYR SUBCUT SCH (22:25)
[2023-07-16] MEDS: Acetaminophen IV 1 GM/100ML 650 MG/65 ML BAG IV PRN ×3 (02:15→21:21)
[2023-07-16] MEDS: D5LR 1000 ml BAG 1,000 ML IV SCH ×2 (06:02→22:55)
[2023-07-16 06:09] LABS: ABS Lymphocytes 0.5 10^3/uL (1.0-4.8); ABS Monocytes 0.1 10^3/uL (0.0-0.9); ABS Neutrophils 1.6 10^3/uL (1.5-7.6); Eosinophil % 0.6 %; Hematocrit 27.9 % (35-45); Lymphocyte % 21.3 %; Mean Corpuscular Hemoglobin 35.1 pg (27-33); Mean Corpuscular Hgb Conc 35.9 g/dL (31-36); Mean Corpuscular Volume 97.6 fL (80-97); Mean Platelet Volume 6.8 fL (7.5-11.2); Platelet Count 197 10^3/uL (150-450); Red Blood Count 2.85 10^6/uL (3.63-4.92); Red Cell Distribution Width 15.4 % (12-17); White Blood Count 2.3 10^3/uL (3.8-11.8)
[2023-07-16] MEDS: Morphine 2 MG/ML SYRINGE IV PRN (06:10)
[2023-07-16 06:50] LABS: Calcium 6.9 mg/dL (8.6-10.3); Creatinine, Serum 0.52 mg/dL (0.51-0.95); Magnesium 1.8 mg/dL (1.9-2.7); Potassium 3.1 mmol/L (3.5-5.0); eGFR CKD-EPI 102.4 (>60)
[2023-07-16] MEDS ORDERED: Magnesium Sulfate 2 gm BAG 2 GM/50 ML BAG IVPB ONE (07:36)
[2023-07-16] MEDS: Oxymetazoline 0.05% NASAL SPR 15 ML BTL BOTH NARES SCH ×2 (09:03→20:52)
[2023-07-16] MEDS: Fluticasone NASAL SPRAY 50MCG 16 gm SPRAY BTL BOTH NARES SCH (09:04)
[2023-07-16] MEDS: KCL 20 MEQ/100 ML IVPREMIX 20 MEQ/100 ML BAG IV SCH ×2 (10:15→13:28)
[2023-07-16] MEDS ORDERED: Potassium Phosphate IV 15 MMOL in NS 0.9% 250 ml 250 ML IVPB SCH (14:00)
[2023-07-16] MEDS: Potassium Phosphate IV 15 MMOL in NS 0.9% 250 ml 250 ML IVPB SCH ×2 (14:23→22:57)
[2023-07-16] MEDS: Ondansetron 4 mg VIAL 2 MG/ML 2 ml VIAL IV PRN ×2 (15:31→21:14)
[2023-07-16] MEDS: Enoxaparin 40 MG/0.4 ML SYR SUBCUT SCH (23:24)
[2023-07-17] MEDS: Acetaminophen IV 1 GM/100ML 650 MG/65 ML BAG IV PRN ×2 (04:37→11:19)
[2023-07-17] MEDS: Potassium Phosphate IV 15 MMOL in NS 0.9% 250 ml 250 ML IVPB SCH (05:12)
[2023-07-17] MEDS: Ondansetron 4 mg VIAL 2 MG/ML 2 ml VIAL IV PRN ×4 (05:35→22:46)
[2023-07-17 06:13] LABS: ABS Lymphocytes 0.4 10^3/uL (1.0-4.8); ABS Monocytes 0.2 10^3/uL (0.0-0.9); ABS Neutrophils 1.4 10^3/uL (1.5-7.6); ABS Nucleated RBC 0.01 10^3/ul; Eosinophil % 1.6 %; Hematocrit 31.3 % (35-45); Hemoglobin 11.2 g/dL (11.5-14.3); Lymphocyte % 21.3 %; Mean Corpuscular Hemoglobin 35.2 pg (27-33); Mean Corpuscular Hgb Conc 35.8 g/dL (31-36); Mean Corpuscular Volume 98.4 fL (80-97); Mean Platelet Volume 6.6 fL (7.5-11.2); Nucleated Red Blood Cells % 0.4 /100 WBC (0.0-0.4); Platelet Count 207 10^3/uL (150-450); Red Blood Count 3.18 10^6/uL (3.63-4.92); Red Cell Distribution Width 15.9 % (12-17)
[2023-07-17 06:40] LABS: Calcium 6.5 mg/dL (8.6-10.3); Creatinine, Serum 0.43 mg/dL (0.51-0.95); Magnesium 2.1 mg/dL (1.9-2.7); Phosphorus 2.5 mg/dL (2.5-5.0); Potassium 3.6 mmol/L (3.5-5.0); eGFR CKD-EPI 107.2 (>60)
[2023-07-17] MEDS: Oxymetazoline 0.05% NASAL SPR 15 ML BTL BOTH NARES SCH ×2 (11:25→21:08)
[2023-07-17] MEDS: Fluticasone NASAL SPRAY 50MCG 16 gm SPRAY BTL BOTH NARES SCH (11:25)
[2023-07-17] MEDS: KCL 20 MEQ/100 ML IVPREMIX 20 MEQ/100 ML BAG IV SCH ×2 (12:01→14:17)
[2023-07-17] MEDS ORDERED: fentaNYL PATCH 12 MCG/HR 1 PATCH TRANSDERM SCH (13:00)
[2023-07-17] MEDS: D5LR 1000 ml BAG 1,000 ML IV SCH (14:13)
[2023-07-17] MEDS: fentaNYL Patch Check Q Shift NOTE FOLLOW UP SCH (19:20)
[2023-07-17] MEDS ORDERED: Scopolamine 1 mg/72hr PATCH TRANSDERM SCH (20:00)
[2023-07-17] MEDS: Enoxaparin 40 MG/0.4 ML SYR SUBCUT SCH (21:22)
[2023-07-18] MEDS: Ondansetron 4 mg VIAL 2 MG/ML 2 ml VIAL IV PRN ×2 (03:09→11:20)
[2023-07-18] MEDS: D5LR 1000 ml BAG 1,000 ML IV SCH ×2 (05:29→20:29)
[2023-07-18 06:04] LABS: ABS Lymphocytes 0.4 10^3/uL (1.0-4.8); ABS Monocytes 0.1 10^3/uL (0.0-0.9); Eosinophil % 1.2 %; Hematocrit 31.1 % (35-45); Hemoglobin 11.1 g/dL (11.5-14.3); Lymphocyte % 14.3 %; Mean Corpuscular Hemoglobin 35.2 pg (27-33); Mean Corpuscular Hgb Conc 35.9 g/dL (31-36); Mean Corpuscular Volume 98.1 fL (80-97); Mean Platelet Volume 6.5 fL (7.5-11.2); Nucleated Red Blood Cells % 0.1 /100 WBC (0.0-0.4); Platelet Count 223 10^3/uL (150-450); Red Blood Count 3.17 10^6/uL (3.63-4.92); Red Cell Distribution Width 15.4 % (12-17); White Blood Count 2.5 10^3/uL (3.8-11.8)
[2023-07-18 06:29] LABS: Calcium 6.6 mg/dL (8.6-10.3); Creatinine, Serum 0.6 mg/dL (0.51-0.95); Phosphorus 1.4 mg/dL (2.5-5.0); Potassium 4.3 mmol/L (3.5-5.0); eGFR CKD-EPI 98.9 (>60)
[2023-07-18] MEDS: fentaNYL Patch Check Q Shift NOTE FOLLOW UP SCH ×2 (07:02→19:30)
[2023-07-18] MEDS: Fluticasone NASAL SPRAY 50MCG 16 gm SPRAY BTL BOTH NARES SCH (09:59)
[2023-07-18] MEDS: Potassium Phosphate IV 15 MMOL in NS 0.9% 250 ml 250 ML IVPB SCH ×2 (09:59→21:40)
[2023-07-18] MEDS: Oxymetazoline 0.05% NASAL SPR 15 ML BTL BOTH NARES SCH ×2 (09:59→20:56)
[2023-07-18] MEDS ORDERED: Gadoteridol (CONTRAST) 279.3 MG/ML 10 ML IV ONE (15:14)
[2023-07-18] MEDS: Enoxaparin 40 MG/0.4 ML SYR SUBCUT SCH (21:40)
[2023-07-18] MEDS: Pantoprazole VIAL 40 MG VIAL IV SCH (21:40)
[2023-07-19] MEDS: Potassium Phosphate IV 15 MMOL in NS 0.9% 250 ml 250 ML IVPB SCH (03:51)
[2023-07-19 06:13] LABS: ABS Lymphocytes 0.5 10^3/uL (1.0-4.8); ABS Monocytes 0.1 10^3/uL (0.0-0.9); ABS Neutrophils 1.8 10^3/uL (1.5-7.6); ABS Nucleated RBC 0.01 10^3/ul; Eosinophil % 1.4 %; Hemoglobin 9.9 g/dL (11.5-14.3); Lymphocyte % 19.2 %; Mean Corpuscular Hemoglobin 35.1 pg (27-33); Mean Corpuscular Hgb Conc 35.5 g/dL (31-36); Mean Corpuscular Volume 98.9 fL (80-97); Mean Platelet Volume 6.7 fL (7.5-11.2); Nucleated Red Blood Cells % 0.3 /100 WBC (0.0-0.4); Platelet Count 192 10^3/uL (150-450); Red Blood Count 2.83 10^6/uL (3.63-4.92); White Blood Count 2.5 10^3/uL (3.8-11.8)
[2023-07-19 06:37] LABS: Creatinine, Serum 0.55 mg/dL (0.51-0.95); Magnesium 1.7 mg/dL (1.9-2.7); Phosphorus 3.2 mg/dL (2.5-5.0); Potassium 4.3 mmol/L (3.5-5.0)
[2023-07-19 06:46] LABS: Calcium 6.3 mg/dL (8.6-10.3)
[2023-07-19] MEDS ORDERED: CALCIUM GLUCONATE 1GM/50ML NS 1 GM/50 ML BAG IV ONE (07:29)
[2023-07-19] MEDS ORDERED: Magnesium Sulfate IV 3 GM in NS 0.9% 100 ml BAG 100 ML IVPB ONE (07:29)
[2023-07-19] MEDS: fentaNYL Patch Check Q Shift NOTE FOLLOW UP SCH (07:31)
[2023-07-19 08:07] LABS: Calcium (PTH Intact) 6.3 mg/dL (8.6-10.3)
[2023-07-19] MEDS: Oxymetazoline 0.05% NASAL SPR 15 ML BTL BOTH NARES SCH (08:44)
[2023-07-19] MEDS: Pantoprazole VIAL 40 MG VIAL IV SCH (08:44)
[2023-07-19] MEDS: Fluticasone NASAL SPRAY 50MCG 16 gm SPRAY BTL BOTH NARES SCH (08:44)
[2023-07-19 09:59] VITALS: BP 121/81
[2023-07-19] MEDS ORDERED: Cholecalciferol (VIT D3) 1,000 unit TAB PO SCH (10:00)
== END 2023-07-19 14:10 | disposition home or self-care (01) | DRG 158 ==
LOC: EDHOLD 09:45 → ED 09:45 → SUATTDRO 20:26 → MED 20:26 → SUATTDRO 07-16 14:03
PROVIDERS: ADMIT Hospitalist; ATTEND Internal Medicine